=== PATIENT | female | born 1955 | race Caucasian/White ===

== ENCOUNTER → 2021-07-29 | Outpatient (CLI) | payer OTHER ==
[~2021-07-29] MED LIST: ACCUPRIL40 MG PO; FERROUS SULFAT325 M2 PO; FOLIC ACID 1 MG1 MG PO; HYDROCHLOROTHIA25 MG PO; IBUPROFEN600 MG PO; METHOTREXATE T2.5 MG PO; NAPROSYN500 MG PO; NORCO 7.5-3251 EACH PO; PERCOCET 5-3251 EACH PO; PLAQUENIL 200200 MG PO; SYNTHROID100 MCG PO; TYLENOL 325MG325 MG PO; ULTRAM50 MG PO
== END ==
LOC: KOH-I 11:00
DX: R16.2 Hepatomegaly with splenomegaly, not elsewhere classified (principal)
CPT/HCPCS: 76705

== ENCOUNTER 2022-04-03 19:08 | Emergency (ER) | payer OTHER | END 2022-04-03 22:25 | disposition home or self-care (01) | LOC: ER1 19:08 | DX: R52 Pain, unspecified (principal); M06.9 Rheumatoid arthritis, unspecified; W01.0XXA Fall on same level from slipping, tripping and stumbling without subsequent striking against object, initial encounter; Y92.009 Unspecified place in unspecified non-institutional (private) residence as the place of occurrence of the external cause | CPT/HCPCS: 99283 ==

== ENCOUNTER 2022-04-04 18:30 | Inpatient (IN) | payer MEDICARE, OTHER ==
[~2022-04-04] VITALS: Ht 170.2 cm; Wt 99.8 kg
[2022-04-04 18:22] LABS: HEMOGLOBIN 12.3 gm/dl (12.3-15.3); RED BLOOD COUNT 3.72 M/UL (4.00-5.10); WHITE BLOOD COUNT 7.7 K/UL (4.5-11.0)
[2022-04-05 02:55] LABS: HEMOGLOBIN 10.5 gm/dl (12.3-15.3)
[2022-04-05 02:56] LABS: RED BLOOD COUNT 3.31 M/UL (4.00-5.10)
--- NOTE | 2022-04-05 04:46 | NUR ---
STO OBTAINED FRO URINE CULTURE AND SENSITIVITY. TEST WAS PREFORMED IN THE ER, CONTACTED LAB WHO CONFIRMED A SECOND SPECIMEN WAS NOT NEEDED AT THIS TIME.
--- NOTE | 2022-04-05 05:05 | NUR ---
NOTIFIED DR. QIU THAT PATIENT WAS UNABLE TO PRODUCE URINE SINCE SHE WAS STRAIGHT CATHED IN ER. ALSO NOTIFIED HIM OF CRITICAL LAB CK-MB OF 13.7 AND A POTASSIUM OF 3.2. NEW ORDERS OBTAINED TO STRAIGHT CATH AGAIN TO DRAIN BLADDER AND TO ADMINISTER POTASSIUM 20 MEQ X1 PO. WILL CONTINUE TO MONITOR PATIENT.
--- NOTE | 2022-04-05 05:22 | NUR ---
BLADDER SCAN PREFORMED AT 340ML, MADE AWARE, NEW ORDERS OBTAINED FOR STRAIGHT CATH.
--- NOTE | 2022-04-05 10:35 | NUR ---
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 URINATED ON CHUX THAT WAS UNDERNEATH PT. IN A LARGE AMT.
[2022-04-05] MEDS ORDERED: HYDROXYZINE HCL50 MG PO (12:59)
[2022-04-06 04:00] LABS: HEMOGLOBIN 10.8 gm/dl (12.3-15.3); RED BLOOD COUNT 3.34 M/UL (4.00-5.10)
[2022-04-06 04:05] LABS: WHITE BLOOD COUNT 8.4 K/UL (4.5-11.0)
[2022-04-07 02:39] LABS: HEMOGLOBIN 10.6 gm/dl (12.3-15.3); RED BLOOD COUNT 3.3 M/UL (4.00-5.10); WHITE BLOOD COUNT 7.3 K/UL (4.5-11.0)
[2022-04-07 03:17] LABS: BUN/CREATININE RATIO 29 (0-10)
[2022-04-08 03:15] LABS: BUN/CREATININE RATIO 32 (0-10)
[2022-04-08 03:33] LABS: HEMOGLOBIN 11.6 gm/dl (12.3-15.3); RED BLOOD COUNT 3.57 M/UL (4.00-5.10)
[2022-04-08 03:35] LABS: WHITE BLOOD COUNT 9.4 K/UL (4.5-11.0)
--- NOTE | 2022-04-08 16:00 | NUR ---
1600- NOTIFIED DR REDMAN OFFICE OF PTS BP 159/95 HR 76. STATES THEY WILL GIVE MESSAGE TO DR REDMAN AND RETURN MY CALL.
--- NOTE | 2022-04-08 16:50 | NUR ---
1629- DR REDMAN RETURNED MY CALL. STATED TO START PT ON LISINOPRIL 20MG NOW AND CONTINUE.
[2022-04-10 03:07] LABS: HEMOGLOBIN 11.5 gm/dl (12.3-15.3); RED BLOOD COUNT 3.54 M/UL (4.00-5.10)
[2022-04-10 03:43] LABS: WHITE BLOOD COUNT 3.2 K/UL (4.5-11.0)
[2022-04-10 03:44] LABS: BUN/CREATININE RATIO 63 (0-10)
[2022-04-11 05:33] LABS: HEMOGLOBIN 11.7 gm/dl (12.3-15.3); RED BLOOD COUNT 3.69 M/UL (4.00-5.10)
[2022-04-11 05:34] LABS: WHITE BLOOD COUNT 2.1 K/UL (4.5-11.0)
[2022-04-11 05:55] LABS: BUN/CREATININE RATIO 70 (0-10)
[2022-04-12 04:22] LABS: HEMOGLOBIN 11.4 gm/dl (12.3-15.3); RED BLOOD COUNT 3.57 M/UL (4.00-5.10)
[2022-04-12 04:39] LABS: WHITE BLOOD COUNT 1.5 K/UL (4.5-11.0)
[2022-04-12 04:55] LABS: BUN/CREATININE RATIO 71 (0-10)
--- NOTE | 2022-04-12 05:51 | NUR ---
CRITICAL WBC OF 1.5 MD MADE AWARE NO NEW ORDERS AT THIS TIME
[2022-04-13 04:22] LABS: BUN/CREATININE RATIO 55 (0-10)
[2022-04-13 06:15] LABS: HEMOGLOBIN 10.7 gm/dl (12.3-15.3); RED BLOOD COUNT 3.33 M/UL (4.00-5.10)
[2022-04-13 07:06] LABS: WHITE BLOOD COUNT 1.4 K/UL (4.5-11.0)
[2022-04-14 04:53] LABS: HEMOGLOBIN 10.5 gm/dl (12.3-15.3); RED BLOOD COUNT 3.29 M/UL (4.00-5.10)
[2022-04-14 05:27] LABS: BUN/CREATININE RATIO 53 (0-10)
[2022-04-14 05:37] LABS: WHITE BLOOD COUNT 1.4 K/UL (4.5-11.0)
--- NOTE | 2022-04-14 06:10 | NUR ---
MADE SEVERAL ATTEMPT TO CALL DR. QIU TO REPORT CRITICAL PLATELET COUNT OF 39. NO ANSWER OR CALL BACK RECEIVED YET.
--- NOTE | 2022-04-14 06:48 | NUR ---
CRITICAL PLT COUNT OF [address] QIU. NO NEW ORDERS AT THIS TIME.
[2022-04-15 03:59] LABS: HEMOGLOBIN 9.3 gm/dl (12.3-15.3)
[2022-04-15 04:19] LABS: BUN/CREATININE RATIO 39 (0-10)
[2022-04-15 04:22] LABS: RED BLOOD COUNT 2.96 M/UL (4.00-5.10); WHITE BLOOD COUNT 0.6 K/UL (4.5-11.0)
[2022-04-16 03:47] LABS: HEMOGLOBIN 8.9 gm/dl (12.3-15.3)
[2022-04-16 03:49] LABS: WHITE BLOOD COUNT 0.5 K/UL (4.5-11.0)
[2022-04-16 04:06] LABS: BUN/CREATININE RATIO 32 (0-10)
[2022-04-17 09:07] LABS: HEMOGLOBIN 8.6 gm/dl (12.3-15.3); RED BLOOD COUNT 2.73 M/UL (4.00-5.10)
[2022-04-17 09:09] LABS: WHITE BLOOD COUNT 0.6 K/UL (4.5-11.0)
--- NOTE | 2022-04-17 11:49 | NUR ---
NOTIFIED DR. KILPATRICK OF PTS WBC 06. AND PLT COUNT OF 26. NO NEW ORDERS AT THIS TIME.
[2022-04-18 06:37] LABS: HEMOGLOBIN 8.1 gm/dl (12.3-15.3)
[2022-04-18 08:06] LABS: CANDIDA ALBICANS Not Detected (Negative); CANDIDA KRUSEI Not Detected (Negative); CANDIDA TROPICALIS Not Detected (Negative); ESCHERICHIA COLI Not Detected (Negative); HAEMOPHILUS INFLUENZAE Not Detected (Negative); KLEBSIELLA OXYTOCA Not Detected (Negative); KLEBSIELLA PNEUMONIAE Not Detected (Negative); KPC-CARBAPENEM-RESISTANCE GENE Not Detected (Negative); PROTEUS Not Detected (Negative); PSEUDOMONAS AERUGINOSA Not Detected (Negative); SERRATIA MARCESANS Not Detected (Negative); STAPHYLOCOCCUS Not Detected (Negative); STAPHYLOCOCCUS AUREUS Not Detected (Negative); STREP AGALACTIAE (GROUP B) Not Detected (Negative); STREP PYOGENES (GROUP A) Not Detected (Negative); STREPTOCOCCUS Not Detected (Negative); vanA/B (VANCOMYCIN RESIST GENE Not Detected (Negative)
[2022-04-18 08:27] LABS: WHITE BLOOD COUNT 0.6 K/UL (4.5-11.0)
--- NOTE | 2022-04-18 11:47 | NUR ---
1145- DR DELA CRUZ RETURNED MY CALL, WBC 0.6 PLT 12. ORDERED TO TRANFUSE 1 UNIT OF PLT
--- NOTE | 2022-04-18 12:19 | NUR ---
1219- DR KILPATRICK CALLED TO CHECK ON PT. NOTIFIED HIM OF PTS PLT 12 AND WBC 0.5. I TOLD HIM DR DELA CRUZ ORDERED I UNIT OF PLTS. NO NEW ORDERS AT THIS TIME.
[2022-04-19 02:49] LABS: HEMOGLOBIN 9.1 gm/dl (12.3-15.3); RED BLOOD COUNT 2.77 M/UL (4.00-5.10)
--- NOTE | 2022-04-19 07:50 | NUR ---
CRITICAL LABS REPORTED BY ANA LILIA IN LAB, WBC 1.0 AND PLATELET COUNT 28, DR. QIU NOTIFIED VIA PHONE, NO NEW ORDERS AT THIS TIME.
--- NOTE | 2022-04-19 15:16 | NUR ---
changed dry dressing on patient LFA. REAPPLIED ABD PAD WITH TAPE.
[2022-04-20 10:10] LABS: HEMOGLOBIN 8.3 gm/dl (12.3-15.3); RED BLOOD COUNT 2.64 M/UL (4.00-5.10)
[2022-04-20 10:35] LABS: WHITE BLOOD COUNT 3.1 K/UL (4.5-11.0)
[2022-04-21 06:33] LABS: HEMOGLOBIN 8.5 gm/dl (12.3-15.3); RED BLOOD COUNT 2.69 M/UL (4.00-5.10)
[2022-04-21 06:44] LABS: WHITE BLOOD COUNT 7.2 K/UL (4.5-11.0)
[2022-04-21 15:11] LABS: PARVOVIRUS B19, IGM 0.2 index (0.0-0.8)
[2022-04-22 07:21] LABS: HEMOGLOBIN 8.5 gm/dl (12.3-15.3); RED BLOOD COUNT 2.73 M/UL (4.00-5.10)
[2022-04-22 07:22] LABS: WHITE BLOOD COUNT 11.7 K/UL (4.5-11.0)
[2022-04-23 07:13] LABS: HEMOGLOBIN 8.2 gm/dl (12.3-15.3); RED BLOOD COUNT 2.61 M/UL (4.00-5.10)
[2022-04-23] MEDS ORDERED: NORVASC5 MG PO (10:53)
[2022-04-23] MEDS ORDERED: LEVOTHYROXINE50 MC1 PO (10:54)
[2022-04-23] MEDS ORDERED: MEGESTROL400 MG/11 PO (10:56)
[2022-04-23] MEDS ORDERED: MYCOSTATIN CREA15 GM TOP (10:57)
[2022-04-23] MEDS ORDERED: PROTONIX 40 MG40 M1 PO (10:58)
[2022-04-23] MEDS ORDERED: SILVADENE CREAM20 GM TOP (10:59)
[2022-04-23] MEDS ORDERED: PREDNISONE 5 MG5 MG PO (11:01)
[2022-04-23] MEDS ORDERED: TYLENOL325 M1 PO (11:02)
[2022-04-23] MEDS ORDERED: ZOFRAN 4 MG TAB4 MG PO (11:05)
[2022-04-23] MEDS ORDERED: LOVENOX30 MG/0.3 SQ (11:08)
--- NOTE | 2022-04-23 11:52 | NUR ---
I CAME ON SHIFT PT ALREADY DRESSED TO GO TO [facility]. R ENMANUEL IN FRONT ALREADY FOR TRANSPORTATION. PAPERWORK NOT COMPLETE FROM DISCHARGE NURSE. I WAS GETTING REPORT FROM EUGENIA .D/C NURSE BROUGHT PAPERWORK, I DID DISCHARGE TEACHING PT SIGNED AND TRANSPORTER AT [facility] PT HELPED 2 ASSIST TO WHEELCHAIR. I WAS GIVING REPORT TO KATHLEEN AT [facility] SHE INFORMED ME THE PT SHOULD HAVE HAD COVID TESTING, I TOLD HER SHE HAD ALREADY LEFT AND SHE SAID THE WINDOW COVERING SALES CONSULTANT WOULD HAVE TO BE NOTIFIED.
== END 2022-04-23 11:24 | DRG 871 ==
LOC: ER1 18:30 → CDU 20:24 → M/S 20:24
PROVIDERS: Emergency Medicine; Internal Medicine; ADMIT Internal Medicine
PROC: 3E03329 Introduction of Other Anti-infective into Peripheral Vein, Percutaneous Approach (ICD-10-PCS; principal; 2022-04-04)
PROC: B24BZZZ Ultrasonography of Heart with Aorta (ICD-10-PCS; 2022-04-05)
PROC: 0J9F0ZZ Drainage of Left Upper Arm Subcutaneous Tissue and Fascia, Open Approach (ICD-10-PCS; 2022-04-14)
PROC: 30233R1 Transfusion of Nonautologous Platelets into Peripheral Vein, Percutaneous Approach (ICD-10-PCS; 2022-04-16)
DX: A41.89 Other specified sepsis (principal); D61.811 Other drug-induced pancytopenia; N17.9 Acute kidney failure, unspecified; N30.00 Acute cystitis without hematuria; M06.9 Rheumatoid arthritis, unspecified; E86.0 Dehydration; W01.0XXA Fall on same level from slipping, tripping and stumbling without subsequent striking against object, initial encounter; L89.152 Pressure ulcer of sacral region, stage 2; I10 Essential (primary) hypertension; T45.1X5A Adverse effect of antineoplastic and immunosuppressive drugs, initial encounter; E87.6 Hypokalemia; M19.91 Primary osteoarthritis, unspecified site; R53.81 Other malaise; E03.9 Hypothyroidism, unspecified; Z96.619 Presence of unspecified artificial shoulder joint; S40.022A Contusion of left upper arm, initial encounter; B96.5 Pseudomonas (aeruginosa) (mallei) (pseudomallei) as the cause of diseases classified elsewhere; K21.9 Gastro-esophageal reflux disease without esophagitis; D70.9 Neutropenia, unspecified; R65.20 Severe sepsis without septic shock; Z79.52 Long term (current) use of systemic steroids; Z82.49 Family history of ischemic heart disease and other diseases of the circulatory system; Z79.899 Other long term (current) drug therapy
CPT/HCPCS: ECHO; 36415; 36430; 70450; 71045; 73080; 73110; 80048; 80053; 80202; 81001; 82247; 82248; 82550; 82553; 82607; 82728; 82746; 83036; 83540; 83550; 83615; 83735; 83880; 84100; 84132; 84484; 85007; 85025; 85027; 85045; 85049; 85610; 85730; 86140; 86900; 86901; 87040; 87070; 87077; 87086; 87150; 87186; 87205; 93005; 93306; 93971; 96374; 97110; 97110-GP-CQ; 97162; 97165; 97530; 97530-GP-CQ; 97535; 99285; C9113; J0696; J1100; J1644; J1650; J2001; J2405; J2543; J2704; J3010; J3370; J7070; J8610; P9035